=== PATIENT | female | born 2000 | race Caucasian/White ===

== ENCOUNTER 2025-05-28 11:53 | Outpatient (REF) | payer OTHER, SELFPAY ==
[2025-05-28 12:07] LABS: MANUAL DIFF FLAG NO
[2025-05-28 12:44] LABS: Hematocrit 41.9 % (37.0-47.0); Hemoglobin 13.8 g/dl (12.0-16.0); Imm Gran Abs Auto 0.02 X10*3/uL (0.00-0.03); Imm Gran Pct Auto 0.2 % (0.0-0.4); Lymphocytes Absolute Auto 1.4 X10*3/uL (1.2-4.9); Mean Corpuscular HGB Conc 32.9 g/dl (31.0-35.0); Mean Corpuscular Hemoglobin 30.1 pg (27.0-33.0); Mean Corpuscular Volume 91.3 fL (80.0-98.0); NRBC Abs Auto 0.000 X10*3/uL (0.0-0.012); NRBC Pct Auto 0.0 /100WBC (0.0-0.2); Platelet Count 381 X10*3/uL (160-400); Red Blood Count 4.59 X10*6/uL (4.20-5.50); White Blood Count 8.5 X10*3/uL (4.8-10.8)
[2025-05-28 13:11] LABS: Alanine Aminotransferase 22 U/L (0-31); Albumin Level 5.1 g/dL (3.5-5.0); Alkaline Phosphatase 62 U/L (39-117); Anion Gap 12 (12-20); Aspartate Amino Transferase 28 U/L (5-31); Blood Urea Nitrogen 15 mg/dL (9-16); Calcium 9.9 mg/dL (8.4-10.2); Carbon Dioxide 25 mmol/L (22-29); Chloride 108 mmol/L (96-108); Cholesterol 201 mg/dL (<200); Estimated Glomerular Filt Rate > 60; HDL Cholesterol 90 mg/dL (>40); Potassium 4.2 mmol/L (3.3-5.1); Sodium 141 mmol/L (135-145); Total Protein 7.9 g/dL (6.5-8.0); Triglycerides 41 mg/dL (<150)
--- OUTSIDE RECORDS SUMMARY | 2025-05-28 15:58 | XMS_ITS | Encounter Summary ---
Author Organization [facility] Address [address] [place] [address] Phone Care Team Providers Care Delicatessen Slicer Name Role Phone Funmilayo Adams MD Primary Care Provider [phone] Reason for Visit * Reason Comments Med Refill Encounter Details Date Type Department Care Team (Late st Contact Info) Description 11/01/2018 Refill [facility] [place] [address] [place] [address] Funmilayo Adams MD [address] [place] [address] Seasonal allergic rhinitis Social History Tobacco Use Types Packs/Day Years Used Date Smoking Tobacco: Never Smokeless Tobacco: Never Alcohol Use Standard Drinks/Week Comments No 0 (1 standard drink = 0.6 oz pur e alcohol) Comments No Sex and Gender Information Value Date Recorded Sex Assigned at Not on file Legal Sex Female 6:26 PM EDT Gender Identity Not on file Sexual Orientation Straight 04/25/2019 1: 16 PM EST documented as of this encounter Plan of Treatment Not on file documented as of this encounter Visit Diagnoses Diagnosis Seasonal allergic rhinitis Allergic rhinitis, cause unspecified documented in this encounter Care Teams Delicatessen Slicer Relationship Specialty Start Date End Date Funmilayo Adams MD [address] [place] [address] PCP - General 10/05/17 07/29/22 documented as of this encounter
--- OUTSIDE RECORDS SUMMARY | 2025-05-28 15:58 | XMS_ITS | Data Portability ---
Author Organization [place] [facility],, SELENA POWERS MD Address [address] [address] Care Team Providers Care Rayon Coner Name Role Phone CANDACE KHANNA Primary Care Provider Assessment No assessment recorded. Plan of Treatment Reminders Order Date Submit Date Provider Last Modified By Organization Details Last Modified Time Details Appointments None recorded. Lab pap test, thinprep, cervical 2018 019 [facility], Cytopathology Service, [address] [place] [address], [id number], 9 14:23:22 wet mount, vaginal 2018 019 [email or web address] In-Office Order, Internal Use Only DO Not Attach Compendium DO Not Attach Compendium, Do Not Delete/merge, [id number] 9 08:54:24 chlamydia sp, culture, unspecifi ed specimen 2018 019 [facility], Cytopathology Service, [address] [place] [address], [id number], 9 08:27:16 NG DNA, PCR, genital 2018 019 [facility], Cytopathology Service, [address] [place], [address], 9 08:27:16 Referral None recorded. Procedures None recorded. Surgeries None recorded. Imaging None recorded. Medication Orders medroxypr ogesteron e 150 mg/mL intramusc ular suspensio n 2018 019 [email or web address] 1 [id number], [address] [facility] [place], [address], 9 10:39:49 Depo-Prov era 150 mg/mL intramusc ular suspensio n 2018 019 [email or web address] 1 [id number], [address] [place], [address], 9 10:08:28 metronida zole 500 mg tablet 2018 019 [email or web address] [id number], [address] [place], [address], 9 09:33:43 medroxypr ogesteron e 150 mg/mL intramusc ular suspensio n 2018 019 [email or web address] 1 [id number], [address] [facility] [place], [address], 9 15:22:24 Depo-Prov era 150 mg/mL intramusc ular suspensio n 2018 019 [email or web address] 1 [id number] [place], [address], 9 09:37:56 Patient TargetsNo targets recorded. Patient Instructions Encounter Date Encounter Id Patient Instructions Last Modified By Organization Details Last Modified Time 06/27/2018 [id number] shot for control: care instructions Not available 06/28/2018 09:37:56 07/06/2018 [id number] combination mell h control pills for teens: care instructions Not available 07/06/2018 15:22:24 pelvic exam for teens: care instructions Not available 07/06/2018 15:22:24 bacterial vaginosis: care instructions Not available 07/06/2018 15:23:34 She is here for annual exam, doing well on the depo provera, she is graduating this year and will go to [employer], not sure about her major. 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 She notes a few week history of worsening odor in the vaginal canal. She slef treated for monilia last month with an OTC cream. She appears to be doing well. She has symptomatic bv, rx Flagyl, call if symptoms persist or worsen. She is not sexually active at this time. She is advised to get 1500 mg of calcium daily into her diet and supplements combined. We discussed the benefits of adequate vitamin D supplementation to at least 400 units daily, daily aerobic exercise of 30 minutes, and stress reduction. Monthly self breast exam was taught, and stressed, and is advised to call if she discovers any new mass in the breast. Seat belt use for herself and passengers advised. The significant health benefits of becoming and remainig fit, with an optimal BMI, were also discussed. We discussed the potential reduction in chronic discomfort, the diminished risks of hypertension, diabetes, and heart disease with the proper weight management, and improved mobility as she ages. Strategies to reach and maintain her target weight wer discussed in detail, all questions answered. Not available 07/06/2018 15:24:33 09/20/2018 [id number] shot for control: care instructions Not available 09/20/2018 10:08:28 12/18/2018 [id number] shot for control: care instructions Not available 12/18/2018 10:39:49 Reason for Referral None Reported. Results Created Date Observation Date Name Description Value Unit Range Abnormal Flag Note LastModifiedBy Organization Detail LastModifiedTime 07/06/1907/06/2018 julieta killian Clue Cells positi ve Not Available In-Office Order Internal Use Only DO Not Attach Compendium DO Not Attach Compendium, Do Not Delete/merge, [id number] 07/06/2018 15:22:23 07/06/1907/06/2018 julieta killian Trichomonas negati ve Not Available In-Office Order Internal Use Only DO Not Attach Compendium DO Not Attach Compendium, Do Not Delete/merge, [id number] 07/06/2018 15:22:23 07/06/1907/06/2018 julieta killian Hyphae negati ve Not Available In-Office Order Internal Use Only DO Not Attach Compendium DO Not Attach Compendium, Do Not Delete/merge, [id number] 07/06/2018 15:22:23 07/06/19 19 07/06/2018 wet mount , vagin al atrophic epithelium negati ve Not Available In-Office Order Internal Use Only DO Not Attach Compendium DO Not Attach Compendium, Do Not Delete/merge, [id number] 07/06/2018 15:22:23 07/06/19 19 07/06/2018 gener [email or web address] se [id number] RESUL TS OF GEN-P ROBE APTIM A COMBO 2 ASSAY Chlam ydia: NEGAT GLADIS N. gonor rhoea e: NEGAT GLADIS TRISH Yadira PA M.D. , Patho logis t (Case elect lilian alcantara liborio d 07 10 2018) [facility] MATIO N: Routi ne exam. [Z11. 3] SOURC E: ThinP rep Pap for CT/GC Gross Descr iptio n: ThinP rep Vial Recei tae. Physi cians SCOTT N MIGDALIAMI LLAN/ [phone] Not Available [facility], Cytopathology Service [address] [place], [address], 07/10/2018 10:23:22 07/06/19 19 07/06/2018 pap, LB [email or web address] ThinP rep Pap, Image d: NEGAT GLADIS FOR SQUAM OUS INTRA EPITH ELIAL LESIO N AND MALIG [place] . Shleli Corey , CT( CP) (Case elect lilian alcantara liborio d 07 10 2018) ADEQU ACY: Satis facto ry Endoc ervic al/tr ansfo rmati on zone compo nent prese nt. SOURC E: ThinP rep Pap HPV IF ASCUS , Cervi brittany, Image d [facility] MATIO N: HPV If Diagn osis of ASCUS . LPS NEG [Z12. 4, Z01.4 19] Not Available [facility], Cytopathology Service [address] [place], [address], 07/10/2018 14:23:22 Result Notes None recorded. Problems Name Problem SNOMED Code Status Onset Date Resolution Date Notes Provider Name and Address Organization Details Recorded Time Dysmenorrhea 404560944 Active Selena Powers MD [address], [place], [address], [place] [facility], 6 14:10:53 Menorrhagia 924163535 Active Selena Powers MD [address], [place], [address], [place] [facility], 6 14:10:53 Problem Notes None recorded. Medical Equipment None Reported. Allergies No known drug allergies Medications Name Sig Start Date Stop Date Status Note LastModified by Organization Details LastModified Time Daily Multiple Vitamins with Iron tablet Take by oral route. 01/20 completed Not Available Not Available Not Available metronidazo le 500 mg tablet TAKE 1 TABLET BY MOUTH TWICE A DAY FOR 5 DAYS 12/18 completed Not Available Not Available Not Available sulfamethox azole 800 mg-trimetho prim 160 mg tablet 01/20 completed Not Available Not Available Not Available ondansetron 8 mg disintegrat ing tablet active Not Available Not Available N ot Available amoxicillin 875 mg tablet 05/16 completed Not Available Not Available Not Available dextroamphe tamine-amph etamine ER 20 mg 24hr capsule,ext end release active Not Available Not Available Not Available oseltamivir 75 mg capsule 05/16 completed Not Available Not Available Not Available methylpheni date ER 18 mg tablet,exte nded release 24 hr 01/20 completed Not Available Not Available Not Available fluticasone propionate 50 mcg/actuati on nasal spray,suspe nsion active Not Available Not Available Not Available medroxyprog esterone 150 mg/mL intramuscul ar suspension INJECT 1 ML INTRAMUSC ULARLY EVERY 3 MONTHS active Not Available Not Available No t Available Amphetamine Salt Combo 10 mg tablet TAKE 1 TABLET BY MOUTH EVERY DAY IN THE AFTERNOON 09/23 completed Not Available Not Available Not Available methylpheni date ER 27 mg tablet,exte nded release 24 hr 01/20 completed Not Available Not Available Not Available dextroamphe tamine-amph etamine ER 25 mg 24hr capsule,ext end release 01/20 completed Not Available Not Available Not Available atomoxetine 10 mg capsule active Not Available Not Available Not Available atomoxetine 18 mg capsule 06/27 completed Not Available Not Available Not Available atomoxetine 60 mg capsule active Not Available Not Available Not Available cephalexin 750 mg capsule TAKE ONE CAPSULE BY MOUTH TWICE A DAY FOR 7 DAYS 01/20 completed Not Available Not Available Not Available guanfacine ER 1 mg tablet,exte nded release 24 hr 05/16 completed Not Available Not Available Not Available Orsythia 0.1 mg-20 mcg tablet one tablet daily by mouth 01/20 completed Not Available Not Available Not Available Vitals Date Recorded Body height Body mass index (BMI) Body mass index (BMI) [Percentile] Per age and sex Body weight Heart rate Systolic And Diastolic Provider Name and Address Organization Details Last Updated DateTime 9 162.56 cm 20.5 kg/m2 40 % 74825.9 3 g 88 /min 117/68 mm[Hg] Lyric Ferrara in [facility], 9 15:08:26 Date Recorded Body height Heart rate Body mass index (BMI) Body mass index (BMI) [Percentile] Per age and sex Body weight Systolic And Diastolic Provider Name and Address Organization Details Last Updated DateTime 9 162.56 cm 116 /min 20.3 kg/m2 37 % 99581.9 g 134/83 mm[Hg] Lady Ferrara in [facility], 9 14:53:16 Date Recorded Body height Body mass index (BMI) [Percentile] Per age and sex Body mass index (BMI) Body weight Heart rate Systolic And Diastolic Provider Name and Address Organization Details Last Updated DateTime 9 162.56 cm 39 % 20.5 kg/m2 39824.2 1 g 121 /min 120/76 mm[Hg] Lyric Ferrara in [facility], 9 08:54:07 Date Recorded Body height Heart rate Body mass index (BMI) [Percentile] Per age and sex Body mass index (BMI) Body weight Systolic And Diastolic Provider Name and Address Organization Details Last Updated DateTime 9 162.56 cm 92 /min 49 % 21.3 kg/m2 01785.7 4 g 120/71 mm[Hg] Lady Rendon [place] [facility], 9 09:33:00 Date Recorded Body weight Body mass index (BMI) [Percentile] Per age and sex Body mass index (BMI) Body height Heart rate Systolic And Diastolic Provider Name and Address Organization Details Last Updated DateTime 8 57066.0 6 g 39 % 20.4 kg/m2 162.56 cm 104 /min 122/79 mm[Hg] Lyric Jono [facility], 8 13:46:30 Social History Question Answer Notes LastModified by Organizat ion Details LastModified Time Tobacco Smoking Status Never Smoker Not Available [facility] 04/01/2020 03:19:39 What Is Your Level Of Caffeine Consumption? Occasional [id number] Information not available 04/01/2020 What Type Of Diet Are You Following? REGULAR [id number] Information not available 04/01/2020 Which Illicit Or Recreational Drugs Have You Used? No [id number] Information not available 04/01/2020 Do You Reside In Or Have You Traveled To An Area Where Ebola Virus Transmission Is Active? No [id number] Information not available 04/01/2020 Education 11 Information no t available 01/13/2017 How Many Days In The Past Year Have You Had A Heavy Drinking Consumption (4+ Female, 5+ Male)? 0 Information no t available 01/21/2016 High Number Of Sexual Partners No Information not available 01/21/2016 To Which Gender Do You Self-identify? Female Information not available 01/21/2016 Marital Status Single Informatio n not available 01/17/2015 What Was The Date Of Your Most Recent Tobacco Screening? 09/20/2018 [id number] Information not available 04/01/2020 Are You Sexually Active? Yes [id number] Information not available 04/01/2020 How Much Tobacco Do You Smoke? No [id number] Information not available 04/01/2020 General Stress Level Low Information not available 01/17/2015 How Many Years Have You Smoked Tobacco? 0 [id number] Information not available 04/01/2020 Have You Recently (within The Last 12 Weeks, Or During A Current ) Traveled To Or Lived In A Zika-affected Area? No Information not available 01/21/2016 Sex: Unknown Functional Status Question Answer Note LastModified by Organizat ion Details LastModified Time What is your level of alcohol consumption? 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 Heavy [id number] Information not available 04/01/2020 Mental Status None recorded. Family History Relationship Description Onset Age of this Age Resolved Age Notes LastModified by Organization Details LastModified Time Maternal Grandfather Malignant neoplasm of colon 40 Not available 08/28 14:09:55 Maternal Aunt Malignant neoplasm of cervix uteri Not available 0 09/09/2015 14:09:55 Mother Problem none Not availab le 09/09/2015 14:09:55 Medical History Condition Response Anesthesia complications N High Blood Pressure N Candidate for MyRisk panel N Autoimmune Condition N Thyroid Problems N Kidney or Bladder Problems N GI Problems N Lung Disease N Depression N Defects or Inherited Disease N History of Ovarian Cancer N Anemia N History of Breast Cancer N THAIS exposure N BRCA testing in past N Osteopenia N Psychiatric Illness N Anxiety Disorder Y Diabetes N Arthritis N Headaches or Migraines N Infertility N Asthma N History of Cancer N Endometriosis N Hepatitis N Heart Disease N Hypertension N Osteoporosis N Gynecological History Statement/Question Response Dysmenorrhea Y Flow Light Date of LMP 06/27/2018 Menses Monthly N Age at Menarche 12 Current Control Method Depo-Wedding Florist a Age at First Child 1 Obstetrics History GPAL:G 0 P 0 0 0 0 Immunizations Vaccine Type Date Status Note Provider Nam e and Address Organization Details Recorded Time Influenza, split virus, trivalent, preservative 5 completed [place] [facility], 01/17/2015 11:09:58 influenza, unspecified formulation 6 completed [place] [facility], 09/23/2016 15:06:02 Past Encounters Encounter ID Performer Location Encounter Start Date Encounter Closed Date Diagnosis/Indication Diagnosis SNOMED-CT Code Diagnosis ICD10 Code Diagnosis IMO Codes Diagnosis Note [id number] MD SELENA Delgadillo MD [address] [place] [address],[place] [address] 01/17/2015 10:46:09 01/17/2015 15:15:32 Specialized medical examination [id number] MD SELENA Delgadillo MD [address] [place] [address],[place] [address] 08/25/2015 11:29:03 08/25/2015 15:03:21 Dysmenorrhea [id number] N94.4 [id number] MD SELENA Delgadillo MD [address] [place] [address],[place] [address] 09/09/2015 10:37:50 09/09/2015 15:46:20 Dysmenorrhea 128490688 N94.4 Venereal d isease screening 610746171 Z11.3 [id number] MD SELENA Delgadillo MD [address] [place] [address],[place] [address] 11/28/2015 10:24:43 11/28/2015 13:02:36 Dysmenorrhea [id number] N94.4 [id number] MD SELENA Delgadillo MD [address] [place] [address],[place] [address] 01/21/2016 09:49:13 01/21/2016 11:43:49 Specialized medical examination 62953298 Z01.419 Venereal d isease screening 937250037 Z11.3 Menorrhagia 973695115 N9 2.0 [id number] MD SELENA Delgadillo MD [address] [place] [address],[place] [address] 02/20/2016 15:18:11 02/20/2016 16:19:48 Dysmenorrhea [id number] N94.4 [id number] MD SELENA Delgadillo MD [address] [place] [address],[place] [address] 05/14/2016 10:03:29 05/14/2016 14:11:17 Dysmenorrhea [id number] N94.4 [id number] MD SELENA Delgadillo MD [address] [facility],[address] [place] [address] 08/02/2016 14:27:57 08/02/2016 16:25:41 Dysmenorrhea [id number] N94.4 [id number] MD SELENA Delgadillo MD [address] [facility],[address] [place] [address] 09/23/2016 14:46:14 09/24/2016 09:55:42 Dysfunctional uterine bleeding 09881796 N93.8 [id number] MD SELENA Delgadillo MD [address] [place] [address],[place] [address] 10/26/2016 11:01:10 10/26/2016 11:43:10 Dysmenorrhea [id number] N94.4 [id number] MD SELENA Delgadillo MD [address] [place] [address],[address] [place] [address] 01/13/2017 08:39:24 01/13/2017 10:31:35 Dysmenorrhea [id number] N94.4 [id number] MD SELENA Delgadillo MD [address] [place] [address],[address] [place] [address] 01/25/2017 09:13:35 01/25/2017 11:05:07 Specialized medical examination 44896911 Z01.419 Venereal d isease screening 427176866 Z11.3 [id number] MD SELENA Delgadillo MD [address] [facility],[place] [address] 04/05/2017 12:53:59 04/05/2017 15:20:46 Dysmenorrhea [id number] N94.4 [id number] MD SELENA Delgadillo MD [address] [place] [address],[place] [address] 06/27/2017 14:38:53 06/27/2017 15:59:55 Dysmenorrhea [id number] N94.4 [id number] MD SELENA Delgadillo MD [address] [place] [address],[place] [address] 09/21/2017 09:19:05 09/21/2017 11:08:54 Dysmenorrhea [id number] N94.4 [id number] MD SELENA Delgadillo MD [address] [place] [address],[place] [address] 12/26/2017 09:54:42 12/26/2017 13:24:30 Dysfunctional uterine bleeding 11126839 N93.8 [id number] MD SELENA Delgadillo MD [address] [place] [address],[place] [address] 01/09/2018 14:46:50 01/09/2018 15:45:52 Dysmenorrhea [id number] N94.4 [id number] MD SELENA Delgadillo MD [address] [place] [address],[place] [address] 04/04/2018 14:11:37 04/04/2018 15:41:43 Dysmenorrhea [id number] N94.4 [id number] MD SELENA Delgadillo MD [address] [place] [address],[place] [address] 05/16/2018 13:34:12 05/16/2018 15:51:27 [id number] MD SELENA Delgadillo MD [address] [place] [address],[place] [address] 06/27/2018 10:20:20 06/28/2018 10:06:48 Dysmenorrhea [id number] N94.4 [id number] MD SELENA Delgadillo MD [address] [place] [address],[place] [address] 07/06/2018 14:47:54 07/07/2018 08:32:16 Specialized medical examination 47905680 Z01.419 Venereal d isease screening 493081131 Z11.3 Dysmenorrhea 261629143 N 94.4 Vulvitis 46962657 N76.2 [id number] MD SELENA Delgadillo MD [address] [facility],[address] [place] [address] 09/20/2018 08:47:00 09/20/2018 10:25:22 Dysmenorrhea [id number] N94.4 [id number] MD SELENA Delgadillo MD [address] [facility],[address] [place] [address] 12/18/2018 09:27:27 12/18/2018 12:58:55 Dysmenorrhea [id number] N94.4 Health Concerns Section Related Observation LastModified by Organization Detai ls LastModified Time None Recorded Concern Status LastModified by Organization Details LastModified Time None Recorded Advance Directives Directive None Recorded Payers Insurance Date Sequence Insurance Name Policy Number Policy Silva Covered Member ID Silva Member ID Guarantor Name 03/24/2024 1 [facility] [facility] [employer] [id number] Florentin Rivera [id number] Jaye Rivera Notes Date Note Type Note Provider Name and Address Organization Details Recorded Time 07/06/2018 text/html She is here for annual exam, doing well on the depo provera, she is graduating this year and will go to [employer], not sure about her major. 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 Selena Powers MD [address] [facility],[address], [place], [address], [place] - [facility], 07/06/2018 15:25:16 OBGyn Episode No OBEpisode recorded.
--- OUTSIDE RECORDS SUMMARY | 2025-05-28 15:58 | XMS_ITS | Encounter Summary ---
Author Organization [facility] Address [address] [place], [place] [id number] Phone Care Team Providers Care Travel Assistant Name Role Phone Funmilayo Adams MD Primary Care Provider [phone] Reason for Visit * Reason Comments Med Refill Encounter Details Date Type Department Care Team (Late st Contact Info) Description 05/30/2021 Refill Pediatric And Adolescent Medicine - [place] [address] [place] [address] Funmilayo Adams MD [address] [place] [address] Anxiety Social History Tobacco Use Types Packs/Day Years Used Date Smoking Tobacco: Never Smokeless Tobacco: Never Alcohol Use Standard Drinks/Week Comments No 0 (1 standard drink = 0.6 oz pur e alcohol) Hunger/Food Answer Date Recorded In the last 12 months, did y ou or your family ever eat less than you felt you should because there wasn't enough money for food? No 01/07/2020 Stable Housing Answer Date Recorded Are you worried that in the next 2 months you may not have stable housing? No 01/07/2020 Transportation Concerns Answer Date Rec orded In the last 12 months, have you or your family ever had to go without healthcare because you didn't have a way to get there? No 01/07/2020 Hazards in Home Answer Date Recorded Think about the place you li ve. Do you have problems with any of the following? Pests (mice or roaches), mold, no/not working smoke detectors, water leaks, no window guards. No 2019 Financing Utilities Answer Date Recorde d In the last 12 months, has t he electric, [employer], [employer], or water [employer] threatened to shut off your services in your home? No 01/07/2020 Safety at Home Answer Date Recorded Are you or your family worried about feeling saf e in your home? No 01/07/2020 Outside Support Answer Date Recorded Do you feel that you need mo re support from other people or programs to help you care for yourself or your family? No 01/07/2020 Understanding Health Concerns Answer Da te Recorded Do you need help understandi ng your or your child's healthcare needs (diagnosis, medications, plan, etc.)? No 01/07/2020 Financing Health Concerns Answer Date R ecorded In the last 12 months, was t here a time when your child needed to see a doctor or get medications or supplies but could not because of cost? No 01/07/2020 Missing School or Work Answer Date Mehdi rded Did you or your child miss s chool or work because of a health problem that could have been avoided? No 01/07/2020 Comments No Sex and Gender Information Value Date Recorded Sex Assigned at Not on file Legal Sex Female 6:26 PM EDT Gender Identity Not on file Sexual Orientation Straight 04/25/2019 1: 16 PM EST documented as of this encounter Miscellaneous Notes * Telephone Encounter - Hanna Uriarte LPN - 06/01/2021 5:06 PM EST Tried to reach Jaye-no answer-LM to call office back. . See 05/08/21 note below that asks for return call a week after visit (no call). See clinical alert (need to discuss) new PCP. Pt to start Buspar 5 mg qd today and take for 4 days. Then if doing well, increase to 10 mg daily. After 1 week, if no side effects, can increase to 10 q am and 5 qhs. ?? Pt to start Strattera at 40 mg today ?? Pt to start Hydroxyzine 25 mg at bedtime. Can take 50 mg if needed for anxiety and/or insomnia. Momto call with phone F/U next week. ?? Follow-up and Dispositions ?? Return phone F/U next week.. documented in this encounter Plan of Treatment Not on file documented as of this encounter Visit Diagnoses Diagnosis Anxiety Anxiety state, unspecified documented in this encounter Care Teams Travel Assistant Relationship Specialty Start Date End Date Funmilayo Adams MD [address] [facility] [place] [address] PCP - General 10/05/17 07/29/22 documented as of this encounter
--- OUTSIDE RECORDS SUMMARY | 2025-05-28 15:58 | XMS_ITS | Encounter Summary ---
Author Organization [facility] Address [address] [place], [place] [id number] Phone Care Team Providers Care Occupational Rehabilitation Aide Name Role Phone Funmilayo Adams MD Primary Care Provider [phone] Encounter Details Date Type Department Care Team (Late st Contact Info) Description 02/22/2011 Conversion Encounter Pediatric And Adolescent Medicine [facility] [address] [place] [address] Social History Tobacco Use Types Packs/Day Years Used Date Smoking Tobacco: Never Assessed Comments Unknown Sex and Gender Information Value Date Recorded Sex Assigned at Not on file Legal Sex Female 6:26 PM EDT Gender Identity Not on file Sexual Orientation Straight 04/25/2019 1: 16 PM EST documented as of this encounter Plan of Treatment Not on file documented as of this encounter Visit Diagnoses Not on filedocumented in this encounter Care Teams Occupational Rehabilitation Aide Relationship Specialty Start Date End Date Funmilayo Adams MD [address] [place] [address] PCP - General 10/05/17 07/29/22 documented as of this encounter
--- OUTSIDE RECORDS SUMMARY | 2025-05-28 15:58 | XMS_ITS | Encounter Summary ---
Author Organization [facility] Address [address] [place] [address] Phone Care Team Providers Care Stitching Machine Feeder Or Offbearer Name Role Phone Funmilayo dAams MD Primary Care Provider [phone] Reason for Visit * Reason Comments Med Refill Encounter Details Date Type Department Care Team (Late st Contact Info) Description 11/13/2019 Refill Pediatric And Adolescent Medicine - [address] [place] [address] [place] [address] [place] [address] Attention deficit disorder, unspecified hyperactivity presence Social History Tobacco Use Types Packs/Day Years Used Date Smoking Tobacco: Never Smokeless Tobacco: Never Alcohol Use Standard Drinks/Week Comments No 0 (1 standard drink = 0.6 oz pur e alcohol) Hunger/Food Answer Date Recorded No 04/25/2019 Stable Housing Answer Date Recorded No 06/02/2019 Transportation Concerns Answer Date Rec orded No 04/25/2019 Hazards in Home Answer Date Recorded No 04/25/2019 Financing Utilities Answer Date Recorde d No 04/25/2019 Safety at Home Answer Date Recorded No 04/25/2019 Outside Support Answer Date Recorded No 04/25/2019 Understanding Health Concerns Answer Da te Recorded No 04/25/2019 Financing Health Concerns Answer Date R ecorded No 04/25/2019 Missing School or Work Answer Date Mehdi rded No 04/25/2019 Comments No Sex and Gender Information Value Date Recorded Sex Assigned at Not on file Legal Sex Female 6:26 PM EDT Gender Identity Not on file Sexual Orientation Straight 04/25/2019 1: 16 PM EST documented as of this encounter Miscellaneous Notes * Telephone Encounter - Sanjana Bateman RN - 12/06/2019 12:40 PM EDT I called and spoke with Jaye. She says that for the appt on 11/28 she wasn't feeling well that dayso she called to cancel. appt was then scheduled for 01/04/20 with . She says that appt in December is still enough time to get forms to the [facility] as doesnt start back until 01/28. She knows med refillwill not be sent in until she has the appt Message to AK * Telephone Encounter - Subha Felton RN - 12/05/2019 1:43 PM EDT Message to AK as GENET * Telephone Encounter - Violeta Rockwell - 11/29/2019 10:36 AM EDT Pt scheduled for 12/24/19 * Telephone Encounter - Kellen Bustillos - 11/19/2019 11:32 AM EDT LVM requesting a call back for scheduling the following per AK: Refill sent for 90 day supply but pt needs to be seen within the next month or so. ??She was last seen for [facility] in Mar 2019 so it has been > 6 mos since last visit. Routing to for follow up. documented in this encounter Plan of Treatment Not on file documented as of this encounter Visit Diagnoses Diagnosis Attention deficit disorder, unspecified hyperactivity presence documented in this encounter Care Teams Stitching Machine Feeder Or Offbearer Relationship Specialty Start Date End Date Funmilayo Adams MD [address] [place] [address] PCP - General 10/05/17 07/29/22 documented as of this encounter
--- OUTSIDE RECORDS SUMMARY | 2025-05-28 15:58 | XMS_ITS | Encounter Summary ---
Author Organization [facility] Address [address] [place], [place] [phone] Phone Care Team Providers Care Sealer Aircraft Name Role Phone Funmilayo Adams MD Primary Care Provider [phone] Reason for Visit * Reason Comments Med Refill Encounter Details Date Type Department Care Team (Late st Contact Info) Description 06/01/2021 Refill Pediatric And Adolescent Medicine - [place] [address] [place] [address] Funmilayo Adams MD [address] [place] [address] Attention deficit disorder, unspecified hyperactivity presence Social [...] last 12 months, has t he electric, gas, oil, or water company threatened to shut off your services in [...] presence documented in this encounter Care Teams Sealer Aircraft Relationship Specialty Start Date End Date Funmilayo Adams MD [address] [place] [address] PCP - General 10/05/17 07/29/22 documented as of this encounter
--- OUTSIDE RECORDS SUMMARY | 2025-05-28 15:58 | XMS_ITS | Encounter Summary ---
Author Organization [facility] Address [address] [place] [address] Phone Care Team Providers Care Editor Managing Newspaper Name Role Phone Funmilayo Adams MD Primary Care Provider [phone] Reason for Visit * Reason Comments Med Refill Encounter Details Date Type Department Care Team (Late st Contact Info) Description 11/14/2019 Refill Pediatric And Adolescent Medicine - [address] [place] [address] [place] [address] [place] [address] Attention deficit disorder, unspecified hyperactivity presence Social [...] presence documented in this encounter Care Teams Editor Managing Newspaper Relationship Specialty Start Date End Date [facility]o [facility] [address] [facility] [address] PCP - General 10/05/17 07/29/22 documented as of this encounter
--- OUTSIDE RECORDS SUMMARY | 2025-05-28 15:58 | XMS_ITS | Clinical Summary ---
Author Organization [facility] Address [address] [place] [address] Care Team Providers Care Chemical Tester Name Role Phone None, Pcp MD Primary Care Provider Unavailabl e Social History Tobacco Use Types Packs/Day Years Used Date Smoking Tobacco: Never Assessed Comments Unknown Sex and Gender Information Value Date Recorded Sex Assigned at Not on file Legal Sex Female 3:40 PM EDT Gender Identity Not on file Sexual Orientation Not on file Plan of Treatment Not on file Insurance [employer] Care Teams Chemical Tester Relationship Specialty Start Date End Date None, PcpMD PCP - General 02/13/20
--- OUTSIDE RECORDS SUMMARY | 2025-05-28 15:58 | XMS_ITS | Encounter Summary ---
Author Organization [facility] Address [address] [place], [place] [address] Phone Care Team Providers Care Atlassian Administrator Name Role Phone Funmilayo Adams MD Primary Care Provider [phone] Reason for Visit * Reason Comments Med Refill Encounter Details Date Type Department Care Team (Late st Contact Info) Description 02/02/2019 Refill Pediatric And Adolescent Medicine - [place] [address] [place] [address] Funmilayo Adams MD [address] [place] [address] Seasonal allergic rhinitis Social History Tobacco Use [...] encounter Miscellaneous Notes * Telephone Encounter - Subha Felton RN - 02/02/2019 8:49 AM EDT Pt's last wcc was 02/16/18 with AK, next wcc scheduled 04/25/19 with AK. Fluticasone last prescribed 11/01/18 # 1 unit with 3 refills Fluticasone sent to pharmacy today # 1 unit with 2 refills documented in this encounter Plan of Treatment Not on file documented as of this encounter Visit Diagnoses Diagnosis Seasonal allergic rhinitis Allergic rhinitis, cause unspecified documented in this encounter Care Teams Atlassian Administrator Relationship Specialty Start Date End Date Funmilayo Adams MD [address] [place] [address] PCP - General 10/05/17 07/29/22 documented as of this encounter
--- OUTSIDE RECORDS SUMMARY | 2025-05-28 15:58 | XMS_ITS | Encounter Summary ---
Author Organization [facility] Address [address] [place] [address] Care Team Providers Care Trim Crew Supervisor Name Role Phone None, Pcp MD Primary Care Provider Unavailabl e Encounter Details Date Type Department Care Team (Latest Contact Info) Description 02/15/2020 Lab Requisition [facility] [address] [place] [address] Katalina Mccormick NP [address] [facility] [place] [address] Contact with and (suspected) exposure to infections with a predominantly sexual mode of transmission Social History Tobacco Use Types Packs/Day Years Used Date Smoking Tobacco: Never Assessed Comments Unknown Sex and Gender Information Value Date Recorded Sex Assigned at Not on file Legal Sex Female 3:40 PM EDT Gender Identity Not on file Sexual Orientation Not on file documented as of this encounter Plan of Treatment Not on file documented as of this encounter Procedures Procedure Name Priority Date/Time Associated Diagnosis Comments AMPLIFIED PROBE, CHLAM AND GC, SWAB Routine 02/15/2020 11:35 AM EDT Contact with and (suspected) exposure to infections with a predominantly sexual mode of transmission documented in this encounter Results * Chlamydia and GC, Amplified Probe, Swab (02/15/2020 11:35 AM EDT) N. gonorrhoeae by Amplified Probe Negative Negative 02/18/2020 11:19 AM EDT [facility] C. trachomatis by Amplified Probe Negative Negative 02/18/2020 11:19 AM EDT [facility] Specimen from genital system (specimen) 02/15/2020 11:35 AM EDT 02/15/2020 3:44 PM EDT Narrative [facility] - 02/18/2020 11:19 AM EDT This test is approved for vaginal, endocervical, thin prep and urine specimens. The reliability of testing from other sites has not been established. This assay is not intended to be used as a test of cure; a culture is suggested. Testing performed using the [employer] real time PCR platform. us Katalina Mccormick NP MICROBIOLOGY - GENERAL ORDERABL ES Final Result [facility] [address] [place] [address], documented in this encounter Visit Diagnoses Diagnosis Contact with and (suspected) exposure to infections with a predominantly sexual mode of transmission documented in this encounter Care Teams Trim Crew Supervisor Relationship Specialty Start Date End Date None, Pcp, PCP - General 02/13/20 documented as of this encounter
--- OUTSIDE RECORDS SUMMARY | 2025-05-28 15:58 | XMS_ITS | Encounter Summary ---
Author Organization [facility] Address [address] [place], [place] [address] Phone Care Team Providers Care Building Engineer Name Role Phone Funmilayo Adams MD Primary Care Provider [phone] Reason for Visit * Reason Comments Med Refill Encounter Details Date Type Department Care Team (Late st Contact Info) Description 01/24/2018 Refill Pediatric And Adolescent Medicine - [place] [address] [place] [address] Funmilayo Adams MD [address] [place] [address] Social History Tobacco Use Types Packs/Day Years Used Date Smoking Tobacco: Never Smokeless Tobacco: Never Comments Unknown Sex and Gender Information Value Date Recorded Sex Assigned at Not on file Legal Sex Female 6:26 PM EDT Gender Identity Not on file Sexual Orientation Straight 04/25/2019 1: 16 PM EST documented as of this encounter Miscellaneous Notes * Telephone Encounter - Funmilayo Adams MD - 01/27/2018 11:05 AM EDT Scripts sent to pharmacy * Telephone Encounter - Latisha Martins RN - 01/27/2018 10:17 AM EDT Last ADD recheck was done 07/28/17. Was advised to have f/u in 6mo. No recheck done yet but does havea [facility] scheduled for 02/16/18. To [place] for review. documented in this encounter Plan of Treatment Not on file documented as of this encounter Visit Diagnoses Not on filedocumented in this encounter Care Teams Building Engineer Relationship Specialty Start Date End Date Funmilayo Adams MD [address] [place] [address] PCP - General 10/05/17 07/29/22 documented as of this encounter
--- OUTSIDE RECORDS SUMMARY | 2025-05-28 15:58 | XMS_ITS | Clinical Summary ---
Author Organization [facility] Address [address] [place], [place] [address] Phone Care Team Providers Care Turbine Mechanic Name Role Phone Unavailable Primary Care Provider Unavailabl e Allergies No known active allergies Medications 06/18 1-20 MG-MCG per tablet Take 1 tablet by mouth once daily. 3 09/25/19 20 Active medroxyPROGESTERo ne Acetate 150 MG/ML suspension prefilled syringe INJECT 1 ML EVERY 3 MONTHS BY INTRAMUSCULARLY 06/24/19 21 Active metroNIDAZOLE 0.75 % vaginal gel INSERT 1 APPLICATOR(S)FUL EVERY DAY BY VAGINAL ROUTE FOR 5 DAYS. 02/15/20 20 Active sulfamethoxazole- trimethoprim 800-160 MG per tablet TAKE 1 TABLET BY MOUTH EVERY 12 HOURS FOR 3 DAYS 03/10/20 20 Active atomoxetine 60 MG capsuleIndication s:Attention deficit disorder, unspecified hyperactivity presence Take 1 capsule (60 mg total) by mouth every morning. 30 capsule 08/28/19 21 Active atomoxetine 10 MG capsuleIndication s:Attention deficit disorder, unspecified hyperactivity presence Take 1 capsule (10 mg total) by mouth every morning. 30 capsule 08/28/19 21 Active atomoxetine (Strattera) 40 MG capsuleIndication s:Attention deficit disorder, unspecified hyperactivity presence Take 1 capsule (40 mg total) by mouth every morning. 30 capsule 05/08/20 21 Active busPIRone 5 MG tabletIndications :Anxiety Take 1 tab po q am and 2 tabs po qhs 90 tablet 06/24/19 22 Active hydrOXYzine 25 MG tabletIndications :Anxiety TAKE 1-2 TABS BY MOUTH AT BEDTIME FOR ANXIETY 60 tablet 06/24/19 22 Active Active Problems Problem Noted Date Diagnosed Date Attention deficit hyperactiv ity disorder (ADHD), predominantly inattentive type 07/03/2015 Overview (02/16/2018): Diagnosed 01/2016. Started Vyvanse 04/2015, changed to Adderall 05/2015, Methylphenidate 08/2015, Adderall 09/2015, Intuniv 01/2017, Strattera [id number]. Genesight testing done 08/2015 showed none use as directed and Clonidine and Strattera significant drug-gene interaction . Assessment & Plan (02/16/2018 8:40 AM EDT): Continue jesse, recheck in 3 months. Immunizations Immunization Administration Dates Next Due DTaP 5 07/12/2005, 2,2000,10/21,2000 H1N1 05/19/2009,04/09/2009 HPV Vaccine 9 Valent 02/09/2016,07/03/2015,02/06 Hep A, ped/adol 11/15/2011,08/19/2009 Hep B, ped/adol 03/28/2001,2000,2000 Hib (PRP-T) 10/06/2001, 1,2000,08/24 IPV 07/08/2004, 2,2000,08/24 Influenza 03/30/2016 Influenza, injectable, MDCK, preservative free, quadrivalent 02/22/2020,03/29/2019 Influenza, injectable, quadr ivalent, preservative free 02/14/2017,02/09/2016,02/06/2015 Influenza, injectable, triva lent, preservative free 04/16/2010,03/05/2009,01/30/2009 Influenza, intranasal, quadrivalent 04/09/2014,1 Influenza, intranasal, trivalent 04/24/2012,10 MMR 07/12/2005,10/06/2001 Meningococcal B Trumenba 04/25/2019,02/16/2018 Meningococcal Conj (Menactra) MCV4P 02/14/2017,0 01/11/2013 Pneumococcal Conjugate 2000,2000, Tdap 01/11/2013 Varicella 09/29/2009,06/23/2001 Family History Medical History Relation Name Comments Food allergies Brother Hearing loss Brother Colon cancer Paternal Grandmother Relation Name Status Comments Brother Paternal Grandmother Social History Tobacco Use Types Packs/Day Years [...] Orientation Straight 04/25/2019 1: 16 PM EST Last Filed Vital Signs Vital Sign Reading Time Taken Comments Blood Pressure 90/64 01/08/2020 1:50 PM EDT Pulse 88 01/08/2020 1:50 PM EDT Temperature 36.7 C (98 F) 05/08/2021 8:16 AM EST Respiratory Rate - - Oxygen Saturation 98% 01/08/2020 1:50 PM EDT Inhaled Oxygen Concentration - - Weight 56.7 kg (125 lb) 05/08/2021 8:16 AM EST Height 164 cm (5' 4.57 ) 01/08/2020 1:50 PM EDT Body Mass Index 21.08 01/08/2020 1:50 PM EDT Plan of Treatment Health Maintenance Due Date Last Done Comments DTaP,Tdap,and Td Vaccines (7 - Td or Tdap) 01/11/2023 01/11/2013, 07/12/2005, 01/17/2002, Additional history exists Influenza Vaccines (#1) 2024 05/19/20, 03/14/2020, 02/22/2020, Additional history exists COVID-19 Vaccine (2024- season) 2025 06/15/2021, 12/02/2020, 11/11/2020 Pneumococcal Vaccine Aged Out 2000, 2000, 2000 No longer eligible based on patient's age to complete this topic Hepatitis B Vaccines Completed 03/28/2001, 2000, 2000 HIB Vaccines Completed 10/06/2001, 11/28, 2000, Additional history exists IPV Vaccines Completed 07/08/2004, 12/29, 2000, Additional history exists MMR Vaccines Completed 07/12/2005, 10/06/2001 Varicella Vaccines Completed 09/29/2009, 06/23/2001 Hepatitis A Vaccines Completed 11/15/2011, 08/20/19 10 HPV Vaccines Completed 02/09/2016, 08/2015, 02/06/2015 Meningococcal Vaccine Completed 02/14/2017, 013 Men B Vaccine Completed 04/25/2019, 02/16/2018 Procedures * Due to [place] law, this organization might not be sharing sensitive test results. Procedure Name Priority Date/Time Associated Diagnosis Comments CHLAMYDIA AND GONORRHEA, AMPLIFIED Routine 01/08/2020 2:43 PM EDT Screening examination for venereal disease from Last 3 Months or Most Recently Relevant to Health Maintenance Results * Due to [place] law, this organization might not be sharing sensitive test results. * Chlamydia and Gonorrhoea, Amplified (01/08/2020 2:43 PM EDT) Chlamydia Trachomatis, DNA Probe NOT DETECTED (NEG) [facility] Comment:Reference range: NOT DETECTED URINE GC AMP PROBE NOT DETECTED (NEG) [facility] Comment: Reference range: NOT DETECTED (NOTE) The analytical performance characteristics of this assay, when used to test SurePath(TM) specimens have been determined by [facility]. The modifications have not been cleared or approved by the FDA. This assay has been validated pursuant to the CLIA regulations and is used for clinical purposes. = For additional information, please refer to https://education.RailComm/faq/YSP623 (This link is being provided for information/ educational purposes only.) = Test Performed by: [facility], [address] [place] [address]. [id number]. Manager Pulmonary: Peg Flores MD. Testing performed or reported by [facility], a Service of [facility], [address] [place] [id number] Guille Jones MD, Tetryl Nitrator Operator Urine 01/08/2020 2:43 PM EDT 01/08/2020 10:39 PM EDT Funmilayo Adams MD LAB MICROBIOLOGY - GENERAL ORDER ABRAHAM Final Result [facility] from Last 3 Months or Most Recently Relevant to Health Maintenance Insurance [employer] EPO OPEN ACCESS
== END 2025-05-28 11:54 | disposition home or self-care (01) ==
LOC: HO.LAB 11:53
PROVIDERS: PCP Internal Medicine; Visit Provider Internal Medicine
DX: Z00.00 Encounter for general adult medical examination without abnormal findings (principal); R53.83 Other fatigue; Z13.6 Encounter for screening for cardiovascular disorders
CPT/HCPCS: 36415; 80053; 80061; 85025